=== PATIENT | female | born 1940 | race Caucasian/White ===

== ENCOUNTER 2016-11-12 15:39 | Inpatient (IN) | payer OTHER ==
[~2016-11-12] VITALS: Ht 152.4 cm; Wt 86.0 kg
[2016-11-12 16:14] LABS: HEMATOCRIT 40.2 % (36.0-46.0); MCH 28.6 PG (29.0-34.0); MCHC 31.3 G/DL (30.0-36.0); MCV 91.2 FL (83-99); MEAN PLAT.VOLUME 9.1 uM^3 (9.5-12.4); PLATELET COUNT 408 K/uL (156-360); RBC DIS.WIDTH-SD 43.3 % (39-53); RED BLOOD COUNT 4.41 M/uL (3.80-5.20); WHITE BLOOD COUNT 6.1 K/uL (4.1-10.2)
[2016-11-12 16:25] LABS: CHLORIDE 104 mEq/L (99-109); POTASSIUM 4.4 mEq/L (3.7-5.4); SODIUM 142 mEq/L (136-147)
[2016-11-12 16:27] LABS: GLUCOSE 184 mg/dL (70-99)
[2016-11-12 16:28] LABS: ANION GAP 11 MEQ/L (2-14)
[2016-11-12 16:31] LABS: GFR ESTIMATE (CALCULATED) > 59 mL/min/; UREA NITROGEN (BUN) 16 mg/dL (9-23)
[2016-11-12 18:30] LABS: CARBON DIOXIDE (BICARBONATE) 34.2 MEQ/L (20-31)
[2016-11-12 18:46] LABS: TROP-I INTERPRETATION NEGATIVE; TROPONIN-I < 0.01 ng/mL (0.0-0.30)
[2016-11-12 19:31] LABS: D-DIMER ELISA 0.69 mg/L FEU (< 0.57)
[2016-11-12 20:03] LABS: ADD MIUA? YES; BILIRUBIN NEGATIVE; BLOOD SMALL; COLOR YELLOW ((YELLOW)); GLUCOSE (STRIP) NEGATIVE; KETONES NEGATIVE; LEUKOCYTES SMALL; NITRITE NEGATIVE; PROTEIN (STRIP) 30; SPECIFIC GRAVITY 1.021 (1.000-1.030)
[2016-11-12] MEDS ORDERED: FUROSEMIDE40 MG PO (20:08)
[2016-11-12] MEDS ORDERED: NORVASC10 MG PO (20:08)
[2016-11-12] MEDS ORDERED: SYMBICORT60 INHALA1 IH (20:08)
[2016-11-12] MEDS ORDERED: LOSARTAN POTASS50 MG PO (20:08)
[2016-11-12] MEDS ORDERED: SIMVASTATIN20 MG PO (20:08)
[2016-11-12] MEDS ORDERED: LATANOPROST2.5 ML BOTH EYES (20:08)
[2016-11-12 20:18] LABS: BACTERIA NONE SEEN /HPF; EPITHELIAL CELLS RARE /HPF; MUCUS 1+ /LPF; RED BLOOD CELLS 0-5 /HPF (0-5); UCUL ADDED? NO
[2016-11-12 23:33] VITALS: BP 131/77
[2016-11-13 03:30] VITALS: BP 149/70
[2016-11-13 07:44] VITALS: BP 147/75
[2016-11-13 11:52] LABS: POINT-OF-CARE METER ID UU13113725
[2016-11-13 11:55] VITALS: BP 149/66
[2016-11-13 15:33] VITALS: BP 151/67
[2016-11-13 21:28] LABS: POINT-OF-CARE METER ID UU13113725
[2016-11-14 00:35] VITALS: BP 134/63
[2016-11-14 05:29] LABS: POINT-OF-CARE METER ID UU13113725
[2016-11-14 06:35] LABS: ALKALINE PHOSPHATASE 133 IU/L (3-129); ANION GAP 11 MEQ/L (2-14); CHLORIDE 99 MEQ/L (99-109); GFR ESTIMATE (CALCULATED) > 59 mL/min/; GLUCOSE 202 mg/dL (70-99); SAMPLE HEMOLYSIS CHECK 0; SAMPLE ICTERIC CHECK 0; SAMPLE LIPEMIA CHECK 0; SODIUM 141 MEQ/L (136-147); TOTAL BILIRUBIN 0.4 MG/DL (0.0-1.0); UREA NITROGEN (BUN) 15 mg/dL (9-23)
[2016-11-14 07:32] VITALS: BP 144/77
[2016-11-14 15:00] VITALS: BP 148/82
[2016-11-14 23:46] VITALS: BP 146/67
[2016-11-15 06:02] LABS: POINT-OF-CARE METER ID UU13113725
[2016-11-15 07:35] VITALS: BP 164/73
[2016-11-15] MEDS ORDERED: METFORMIN HCL500 MG PO (10:27)
[2016-11-15] MEDS ORDERED: COMBIVENT RESPIM4 GM IH (10:27)
[2016-11-15] MEDS ORDERED: DELTASONE20 M1 PO (10:29)
[2016-11-15 11:30] LABS: POINT-OF-CARE METER ID UU13113725
== END 2016-11-15 13:05 | disposition home health service (06) | DRG 192 ==
LOC: EME 15:39 → 5EAST 19:44 → EDOF 19:44 → 5EAST 23:25
PROVIDERS: Emergency Medicine; Hospitalist; Internal Medicine
DX: J44.1 Chronic obstructive pulmonary disease with (acute) exacerbation (principal); E66.01 Morbid (severe) obesity due to excess calories; I10 Essential (primary) hypertension; E11.9 Type 2 diabetes mellitus without complications; E78.5 Hyperlipidemia, unspecified; Z68.37 Body mass index [BMI] 37.0-37.9, adult; Z87.891 Personal history of nicotine dependence
CPT/HCPCS: 71020; 80048; 80053; 81003; 82140; 82803; 82948; 84484; 85027; 85379; 93005; 94640; 94640 76; 94760; 94799; 99202; 99281; 99285; J0696; J1650; J1815; J1940; J2920; J7050; J7512